=== PATIENT | female | born 1980 | race Caucasian/White ===

== ENCOUNTER 2016-11-19 15:27 | Outpatient (CLI) | payer MEDICARE ==
[2015-07-04 11:09] VITALS: BP 125/77
[2016-11-19 15:48] LABS: BASOPHILS % 0.5 (0.0-1.5); EOSINOPHILS % 2.5 % (0.0-6.8); LYMPHOCYTES # 2.2 # k/uL (0.6-4.0); MEAN CORPUSCULAR HEMOGLOBIN 28.6 pg (28.0-34.0); MONOCYTES # 0.3 # k/uL (0.0-0.9); MONOCYTES % 4.2 % (0.0-11.0); NEUTROPHILS # 4.8 # k/uL (1.4-7.7)
[2016-11-19 16:20] LABS: eGFR (African) > 60; eGFR (Non-African) > 60
== END 2016-11-19 15:30 ==
LOC: LAB 15:27
PROVIDERS: ATTEND Nurse Practitioner
DX: Z51.81 Encounter for therapeutic drug level monitoring (principal); Z79.899 Other long term (current) drug therapy; G40.309 Generalized idiopathic epilepsy and epileptic syndromes, not intractable, without status epilepticus
CPT/HCPCS: 36415; 80053; 80177; 85025

== ENCOUNTER 2016-12-28 13:20 | Emergency (ER) | payer MEDICARE ==
[2016-12-28] MEDS ORDERED: DIPH,PERTUSS(ACELL),TET VAC/PF 0.5 ML DISP.SYRIN IM ONE ×2 (14:07)
--- NOTE | 2016-12-28 14:10 | ED Physician Documentation ---
General Adult - HISTORIAN Historian: patient, spouse, friend - [facility] Stated Complaint: laceration Chief Complaint: Laceration/Recheck/Suture Additional Information: 0.7 cm lac distal tip lt middle finger broken clean glasss fr steward dishwasher Onset: hours (1) Timing: still present, other (bleeding controlled after chlorhexadine prep) Severity: mild - ROS CONST: denies: no problems, fever, sweating, recent illness, weakness CVS/RESP: none. denies: chest pain, shortness of breath, cough GI/: none MS/SKIN/LYMPH: none - PAST HX Past History: other (mental retardation ess tremor seiure dvt ) Surgeries/Procedures: other (jojo filter after dvt-now removed) Allergies/Adverse Reactions: Allergies Allergy/AdvReac Type Severity Reaction Status Date / Time lamotrigine [From Lamictal] Allergy Intermediate Verified 12/28/16 13:31 Home Medications: Ambulatory Orders Medication Instructions Recorded Buspirone HCl [Buspar] 10 mg PO 12 06/30/15 Buspirone HCl [Buspar] 15 mg PO BID 06/30/15 Primidone [Mysoline] 100 mg PO TID 06/30/15 Propranolol HCl [Inderal] 40 mg PO BID 06/30/15 Topiramate [Topamax] 200 mg PO BID 06/30/15 levETIRAcetam [Keppra] 500 mg PO BID 06/30/15 - SOCIAL HX Smoking History: non-smoker Alcohol Use: none Drug Use: none - FAMILY HX Family History: No - VITAL SIGNS Vital Signs: Vital Signs Temp Pulse Resp BP Pulse Ox 98.2 F 87 H 158/82 98 12/28/16 13:33 12/28/16 13:33 12/28/16 13:33 12/28/16 13:33 - REVIEWED ASSESSMENTS Nursing Assessment Reviewed: Yes Vitals Reviewed: Yes Procedures Wound Location: upper extremity Wound's Depth, Shape: superficial Wound Explored: clean Betadine Prep?: No Wound Repaired With: Dermabond Layer Closure?: No Sterile Dressing Applied?: Yes Splint Applied?: No Sling Applied?: No ED Results Lab/Radiology - Orders Orders: ED Orders Category Date Time Status Skin Adhesive NOW Care 12/28/16 14:15 Ordered Diph,Pertuss(Acell),Tet Vac/Pf [Adacel] Med 12/28/16 14:07 Once 0.5 ml IM .ONCE ONE General Adult Physical Exam - PHYSICAL EXAM GENERAL APPEARANCE: mild distress EENT: eye inspection normal NECK: normal inspection, thyroid normal RESPIRATORY: no resp distress, chest non-tender, breath sounds normal CVS: reg rate & rhythm, heart sounds normal ABDOMEN: soft, non-tender SKIN: warm/dry, normal color. No: cyanosis, diaphoresis, jaundice, mottled EXTREMITIES: non-tender, normal range of motion NEURO: oriented X3, mood/affect nml Discharge Clincal Impression: Finger laceration Home Medications: Ambulatory Orders Buspirone HCl [Buspar] 10 mg PO 12 06/30/15 Buspirone HCl [Buspar] 15 mg PO BID 06/30/15 Primidone [Mysoline] 100 mg PO TID 06/30/15 Propranolol HCl [Inderal] 40 mg PO BID 06/30/15 Topiramate [Topamax] 200 mg PO BID 06/30/15 levETIRAcetam [Keppra] 500 mg PO BID 06/30/15 Comments: cleanse chlorhexadine dermabond sterile dressing Condition: Good Disposition: 01 HOME, SELF-CARE Decision to Admit: NO Decision Time: 14:19
[2016-12-28 14:26] VITALS: BP 136/72
== END 2016-12-28 14:25 | disposition home or self-care (01) ==
LOC: ED 13:20
DX: S61.213A Laceration without foreign body of left middle finger without damage to nail, initial encounter (principal)
CPT/HCPCS: 90471; 90715; 99283

== ENCOUNTER 2017-03-03 12:41 | Outpatient (CLI) | payer MEDICARE ==
--- NOTE | 2017-03-03 14:37 | Diagnostic Imaging Report ---
KADEN PHILIPPE [facility] [id number] [facility].[address] [id number] Report Submission Date: Mar 03, 2017 1:27:49 PM CDT Patient Study Name: ARMIN LEWIS Date: Mar 03, 2017 1:07:31 PM CDT Modality Type: CR Gender: F Description: CHEST : 82 Institution: [facility] Physician: KADEN PHILIPPE Examination: PA and lateral chest. History: Evaluate lung jose. Findings: PA lateral chest demonstrate a normal cardiac and mediastinal silhouette. Mild infiltrate right inferior hilar region. No effusion. No blunting of the costophrenic margins. Osseous structures are appropriate for age. Impression: Mild right hilar infiltrate. No effusion. Followup CXR recommended after treatment therapy to document resolution. Electronically signed on Mar 03, 2017 1:27:49 PM CDT by: Yaw PEARSON
== END 2017-03-03 12:42 ==
LOC: LAB 12:41
PROVIDERS: ATTEND Family Medicine
DX: R07.9 Chest pain, unspecified (principal)
CPT/HCPCS: 36415; 71020; 84484

== ENCOUNTER 2017-10-21 09:01 | Outpatient (CLI) | payer MEDICARE | END 2017-10-21 09:03 | LOC: LAB 09:01 | PROVIDERS: ATTEND Family Medicine | DX: I87.1 Compression of vein (principal) | CPT/HCPCS: 36415; 85610 ==

== ENCOUNTER 2017-11-21 09:50 | Outpatient (CLI) | payer MEDICARE ==
[2017-11-21 10:21] LABS: BASOPHILS % 0.7 (0.0-1.5); EOSINOPHILS % 2.5 % (0.0-6.8); MEAN CORPUSCULAR HEMOGLOBIN 28.5 pg (28.0-34.0); MEAN CORPUSCULAR VOLUME 88.8 fl (80.0-100.0); MONOCYTES % 4.4 % (0.0-11.0); NEUTROPHILS # 5.2 # k/uL (1.4-7.7)
[2017-11-21 10:48] LABS: eGFR (African) > 60; eGFR (Non-African) > 60
== END 2017-11-21 13:23 ==
LOC: LAB 09:50
PROVIDERS: ATTEND Specialist
DX: G40.309 Generalized idiopathic epilepsy and epileptic syndromes, not intractable, without status epilepticus (principal)
CPT/HCPCS: 36415; 80053; 80177; 85025

== ENCOUNTER 2018-01-29 10:16 | Outpatient (CLI) | payer MEDICARE | END 2018-01-29 12:17 | LOC: LAB 10:16 | PROVIDERS: ATTEND Family Medicine | DX: Z79.01 Long term (current) use of anticoagulants (principal) | CPT/HCPCS: 36415; 85610 ==